=== PATIENT | female | born 1990 | race Caucasian/White ===

== ENCOUNTER 2023-10-31 20:19 | Emergency (ER) | payer OTHER ==
[2023-10-31 20:38] VITALS: BP 111/61; O2SAT 100
--- NOTE | 2023-10-31 20:39 | ED Physician Documentation ---
PD HPI SKIN - Stated complaint Stated Complaint: LIP PX - Chief complaint Chief Complaint: Laceration - History obtained from History obtained from: Patient - Additional information Additional information: 33-year-old female presents for evaluation of lip injury. Earlier in the evening her toddler jumped striking her in the mouth. She reports pain and swelling to the left upper lip. She states that she could not get it to stop bleeding and so she came to the ER to see if it needed stitches. Review of Systems Skin: reports: Laceration (s) PD PAST MEDICAL HISTORY - Past Medical History Past Medical History: No - Past Surgical History Past Surgical History: No - Present Medications Home Medications: Ambulatory Orders Medication Instructions Recorded Confirmed No Known Home Medications 10/31/23 10/31/23 - Allergies Allergies/Adverse Reactions: Allergies Allergy/AdvReac Type Severity Reaction Status Date / Time No Known Drug Allergies Allergy Verified 10/31/23 20:35 - Social History Does the pt smoke?: No Smoking Status: Never smoker Does the pt drink ETOH?: No Does the pt have substance abuse?: No - Immunizations Immunizations are current?: Yes - POLST Patient has POLST: No PD ED PE NORMAL - Vitals Vital signs reviewed: Yes - General General: Alert and oriented X 3, No acute distress, Well developed/nourished - HEENT HEENT: PERRL, EOMI, Dentition benign, Other (superficial abrasion/swelling L u pper inner lip near canine tooth) - Derm Derm: Normal color, Warm and dry, Other (superficial abrasion L inner upper lip near canine tooth) - Neuro Neuro: Alert and oriented X 3, 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 No lacerations amenable to sutures. Patient counseled on supportive care measures for home. No sutures needed today. Departure - Departure Disposition: 01 Home, Self Care Clinical Impression: Lip abrasion Condition: Stable Forms: PCP List Discharge Date/Time: 10/31/23 20:38
== END 2023-10-31 20:38 | disposition home or self-care (01) ==
LOC: ED 20:19
DX: S00.511A Abrasion of lip, initial encounter (principal); W50.0XXA Accidental hit or strike by another person, initial encounter
CPT/HCPCS: 99281; 99282